=== PATIENT | female | born 1995 | race Caucasian/White ===

== ENCOUNTER 2017-11-18 16:52 | Day surgery (SDC) | payer OTHER ==
[2017-11-18 18:24] LABS: HEMATOCRIT 37.6 % (36.0-47.0); HEMOGLOBIN 12.2 g/dL (12.0-15.5); MEAN CORPUSCULAR HGB CONC 32.5 g/dL (32.0-36.0); MEAN CORPUSCULAR VOLUME 80 fl (80-97); PLATELET COUNT 337 10^3/uL (150-450); RED BLOOD COUNT 4.69 10^6/uL (3.72-5.28); WHITE BLOOD COUNT 6.2 10^3/uL (4.0-10.5)
[2017-11-18] MEDS ORDERED: RINGERS SOLUTION,LACTATED 500 ML IV ONE (18:30)
[2017-11-18] MEDS ORDERED: HYDROMORPHONE HCL INJ/PF 2 MG/ML AMPULE ONE ×2 (18:34→18:35)
[2017-11-18] MEDS ORDERED: MIDAZOLAM 2 MG/2 ML INJ ONE (18:34)
[2017-11-18] MEDS ORDERED: EPHEDRINE SULFATE INJ 50 MG/1 ML AMPULE ONE (18:35)
[2017-11-18] MEDS ORDERED: PROPOFOL INJ 200 MG/20 ML VIAL IV ONE (18:35)
[2017-11-18] MEDS ORDERED: ONDANSETRON HCL INJ/PF 4 MG/2 ML SDV ONE ×2 (18:35→19:50)
[2017-11-18] MEDS ORDERED: RINGERS SOLUTION,LACTATED 1,000 ML IV PRN (18:35)
[2017-11-18 18:53] LABS: ANION GAP 13 (5-19); BLOOD UREA NITROGEN 11 mg/dL (7-20); CALCIUM 9.8 mg/dL (8.4-10.2); CARBON DIOXIDE 26 mmol/L (22-30); CHLORIDE 104 mmol/L (98-107); GLUCOSE 80 mg/dL (75-110); POTASSIUM 4.1 mmol/L (3.6-5.0)
[2017-11-18] MEDS ORDERED: MEPERIDINE HCL/PF INJ 25 MG/1 ML DISP.SYRIN IV PRN (18:55)
[2017-11-18] MEDS ORDERED: DIPHENHYDRAMINE HCL 50 MG/ML VIAL IV PRN (18:55)
[2017-11-18] MEDS ORDERED: PROMETHAZINE HCL INJ 25 MG/1 ML VIAL IV PRN (18:55)
[2017-11-18] MEDS ORDERED: FENTANYL CITRATE INJ/PF 100 MCG/2 ML AMPUL IV PRN ×3 (18:55)
--- NOTE | 2017-11-18 19:11 | Operative Report ---
Operative Report DATE OF SURGERY: 11/18/17 PREOPERATIVE DIAGNOSIS: Heavy vaginal bleeding POSTOPERATIVE DIAGNOSIS: Same OPERATION: D&C SURGEON: HOA DHALIWAL ANESTHESIA: GA TISSUE REMOVED OR ALTERED: Uterine contents COMPLICATIONS: None ESTIMATED BLOOD LOSS: 20 cc INTRAOPERATIVE FINDINGS: Uterus sounded 8 cm before and after the case PROCEDURE: Patient was taken the OR and placed in supine position. General anesthesia was induced. She is placed in dorsolithotomy position using Lenny stirrups. Her perineum vagina were prepared and draped in sterile fashion. She had voided just prior to going back to the OR so did not need catheterization. A weighted speculum was placed in the anterior lip cervix was grasped with tenaculum. Uterus sounded 8 cm before and after the case. The cervix was dilated. Sharp curettage was carried out noting a uterine cry on all 4 cabezas. Polyp forceps were used. There is no remaining tissue on strings were removed she is placed back in supine position taken recovery in stable condition.
--- NOTE | 2017-11-18 19:13 | PDOC DISCHARGE SUMMARY ---
General - Admit/Disc Date/PCP Discharge Date: 11/18/17 - Discharge Diagnosis (1) Vaginal bleeding Is this a current diagnosis for this admission?: Yes - Additional Information Resuscitation Status: Full Code History of Present Illness Patient complains of: Heavy vaginal bleeding History of Present Illness: BRANNON ARVIZU is a 22 year old female Patient reports heavy vaginal bleeding and is sent from the office for a D&C. She is currently not . Hospital Course Hospital Course: She underwent a D&C. Afterwards she had only minimal bleeding. Please see the operative report for details. Physical Exam - Physical Exam General appearance: PRESENT: no acute distress, well-developed, well-nourished Result Laboratory Results: 11/18/17 18:12 11/18/17 18:12 11/18/17 11/18/17 11/18/17 18:12 18:12 18:12 WBC 6.2 RBC 4.69 Hgb 12.2 Hct 37.6 MCV 80 MCH 26.0 L MCHC 32.5 RDW 17.0 H Plt Count 337 Sodium 143.0 Potassium 4.1 Chloride 104 Carbon Dioxide 26 Anion Gap 13 BUN 11 Creatinine 0.77 Est GFR ( Amer) > 60 Est GFR (Non-Af Amer) > 60 Glucose 80 Calcium 9.8 Blood Type A POSITIVE Antibody Screen NEGATIVE Impressions: Heavy vaginal bleeding Plan Discharge Plan: We have completed D&C. Her bleeding is minimal. She will be discharged home on Provera with follow-up next week.
[2017-11-18] MEDS ORDERED: OXYCODONE-ACETAMINOPHEN 5-325 MG TABLET PO PRN ×2 (19:58)
[2017-11-18] MEDS ORDERED: IBUPROFEN 800 MG TABLET PO PRN (19:58)
[2017-11-18] MEDS ORDERED: ONDANSETRON HCL INJ/PF 4 MG/2 ML SDV IV ONE (20:00)
[2017-11-18] MEDS ORDERED: PROMETHAZINE HCL INJ 25 MG/1 ML VIAL ONE (20:13)
[2017-11-18] MEDS ORDERED: SCOPOLAMINE HYDROBROMIDE 1.5 MG PATCH.TD72 ONE (20:13)
[2017-11-18] MEDS ORDERED: METOCLOPRAMIDE HCL INJ/PF 10 MG/2 ML SDV ONE (20:36)
[2017-11-18] MEDS ORDERED: DEXAMETHASONE SOD PHOS INJ 10 MG/1 ML VIAL ONE (20:36)
[2017-11-18 23:22] VITALS: BP 122/60
[2017-11-18 23:55] LABS: CHLAM PCR NOT DETECTED (NOT DETECT); GON PCR NOT DETECTED (NOT DETECT)
== END 2017-11-18 23:35 | disposition home or self-care (01) ==
LOC: 2S 16:52 → OROUT 16:52
PROVIDERS: ATTEND Student in an Organized Health Care Education/Training Program
DX: N92.1 Excessive and frequent menstruation with irregular cycle (principal); N92.4 Excessive bleeding in the premenopausal period; N84.0 Polyp of corpus uteri; E66.9 Obesity, unspecified; Z68.38 Body mass index [BMI] 38.0-38.9, adult; Z88.0 Allergy status to penicillin
CPT/HCPCS: 86900; 86901; 36415; 86850; 85027; 81025; 80048; 87491; 87591; 88305 ×2; 58120; J2250; J2765; J1170; J2550; J2405; J2704; J1100; 940; J3490

== ENCOUNTER → 2019-10-07 | Outpatient (CLI) | payer OTHER | LOC: RDC 11:32 | PROVIDERS: ATTEND Registered Nurse | DX: Z53.9 Procedure and treatment not carried out, unspecified reason (principal) | CPT/HCPCS: 87635; C9803 ==